=== PATIENT | female | born 1945 | race Hispanic/Latino ===

== ENCOUNTER → 2019-10-06 | Outpatient (CLI) | payer OTHER, MEDICARE | END | disposition home or self-care (01) | LOC: RAH 16:22 | PROVIDERS: ATTEND Internal Medicine | DX: M16.11 Unilateral primary osteoarthritis, right hip (principal); M47.814 Spondylosis without myelopathy or radiculopathy, thoracic region; I70.0 Atherosclerosis of aorta; M41.85 Other forms of scoliosis, thoracolumbar region | CPT/HCPCS: 71100; 72070 ==

== ENCOUNTER → 2020-01-24 | Outpatient (CLI) | payer OTHER, MEDICARE | END | disposition home or self-care (01) | LOC: OIH 10:44 | PROVIDERS: ATTEND Internal Medicine | DX: S93.602A Unspecified sprain of left foot, initial encounter (principal); M81.0 Age-related osteoporosis without current pathological fracture; M85.872 Other specified disorders of bone density and structure, left ankle and foot; X58.XXXA Exposure to other specified factors, initial encounter; Y92.89 Other specified places as the place of occurrence of the external cause; Y93.89 Activity, other specified; Y99.8 Other external cause status | CPT/HCPCS: 73620 ==